=== PATIENT | male | born 1985 | race Caucasian/White ===

== ENCOUNTER 2019-05-18 08:30 | Inpatient (IN) | payer OTHER ==
[2019-05-18 09:05] VITALS: BMI 20.9
--- NOTE | 2019-05-18 11:02 | HP ---
COWS - Scale Resting Pulse: 0= [place] 80 or Below Sweatin= Chills/Flushing Restless Observation: 1= Difficult to Sit Still Pupil Size: 1= Pupils >than Normal Bone or Joint Aches: 4=Acute Joint/Muscle Pain Runny Nose/ Eye Tearin= Nasal Congestion GI Upset > 30mins: 2= Nausea/Diarrhea Tremor Observation: 2= Slight Tremor Visible Yawning Observation: 2= >3x During Session Anxiety or Irritability: 2=Irritable/Anxious Goose Flesh Skin: 3=Piloerection COWS Score: 19 CIWA Score Nausea/Vomitin Muscle Tremors: 3 Anxiety: 2 Agitation: 2 Paroxysmal Sweats: 2 Orientation: 0-Oriented Tacttile Disturbances: 1-Very Mild Itch/Numbness Auditory Disturbances: 1-Very Mild Visual Disturbances: 1-Very Mild Sensitivity Headache: 2-Mild CIWA-Ar Total Score: 17 - Admission Criteria OASAS Guidelines: Admission for Medically Managed Detox: Requires at least one of the followin. CIWA greater than 12 2. Seizures within the past 24 hours 3. Delirium tremens within the past 24 hours 4. Hallucinations within the past 24 hours 5. Acute intervention needed for co occurring medical disorder 6. Acute intervention needed for co occurring psychiatric disorder 7. Severe withdrawal that cannot be handled at a lower level of care (continued vomiting, continued diarrhea, abnormal vital signs) requiring intravenous medication and/or fluids 8. Patient presents the following: CIWA greater than 12 Admission Criteria Met: Admission criteria met Admission ROS [facility] - [facility] Chief Complaint: I want to detox Allergies/Adverse Reactions: Allergies Allergy/AdvReac Type Severity Reaction Status Date / Time No Known Allergies Allergy Verified 05/18/19 09:02 History of Present Illness: 34 year old man presents for detox. Patient was brought by van from [facility] where he presented last night with acute back pain, ( pain level during assessment 11/16). He had MRI cord compression screening without contrast , results not attached to discharge summary. Patient however reports he was told everything is okay. Patient unable to sit during assessment. Exam Limitations: No Limitations - Ebola screening Have you traveled outside of the country in the last 21 days: No Have you had contact with anyone from an Ebola affected area: No Have you been sick,other than usual withdrawal symptoms: No Do you have a fever: No - Review of Systems Constitutional: Chills, Loss of Appetite EENT: reports: Nose Congestion Respiratory: reports: No Symptoms reported Cardiac: reports: No Symptoms Reported GI: reports: Diarrhea, Nausea, Poor Fluid Intake, Vomiting, Abdominal cramping : reports: No Symptoms Reported Musculoskeletal: reports: Back Pain, Joint Pain, Muscle Pain Integumentary: reports: Dryness Neuro: reports: Headache, Tremors Endocrine: reports: No Symptoms Reported Hematology: reports: No Symptoms Reported Psychiatric: reports: No Sypmtoms Reported Other Systems: Reviewed and Negative Patient History - Patient Medical History Hx Anemia: No Hx Asthma: Yes Hx Chronic Obstructive Pulmonary Disease (COPD): No Hx Cancer: No Hx Cardiac Disorders: No Hx Congestive Heart Failure: No Hx Hypertension: No Hx Hypercholesterolemia: No Hx Pacemaker: No HX Cerebrovascular Accident: No Hx Seizures: No Hx Dementia: No Hx Diabetes: No Hx Gastrointestinal Disorders: No Hx Liver Disease: No Hx Genitourinary Disorders: No Hx Sexually Transmitted Disorders: No Hx Renal Disease (ESRD): No Hx Thyroid Disease: No Hx Human Immunodeficiency Virus (HIV): No Hx Hepatitis C: No Hx Depression: No Hx Suicide Attempt: No Hx Bipolar Disorder: No Hx Schizophrenia: No - Patient Surgical History Past Surgical History: No - PPD History Previous Implant?: No Implanted On Prior [facility] Admission?: No PPD to be Administered?: Yes - Smoking Cessation Smoking history: Current every day smoker Have you smoked in the past 12 months: Yes Aproximately how many cigarettes per day: 20 Hx Chewing Tobacco Use: No Initiated information on smoking cessation: Yes 'Breaking Loose' booklet given: 05/18/19 Admission Physical Exam S - Vital Signs Vital Signs: Vital Signs - 24 hr 05/18/19 09:02 Temperature 97.5 F L Pulse Rate 78 Respiratory 18 Rate Blood Pressure 138/87 - Physical General Appearance: Yes: Mild Distress (from back pain), Irritable, Sweating, Anxious HEENTM: Yes: Hearing grossly Normal, Normocephalic, Normal Voice, Nasal Congestion Respiratory: Yes: Chest Non-Tender, Lungs Clear, Normal Breath Sounds, No Respiratory Distress, No Accessory Muscle Use Neck: Yes: No masses,lesions,Nodules, Supple Breast: Yes: Breast Exam Deferred Cardiology: Yes: Regular Rhythm, Regular Rate, S1, S2 Abdominal: Yes: Normal Bowel Sounds, Non Tender Genitourinary: Yes: Within Normal Limits Back: Yes: Normal Inspection Musculoskeletal: Yes: Back pain, Muscle Pain Extremities: Yes: Tremors Neurological: Yes: deputy general counsel II-XII NML intact, Fully Oriented, Alert, Normal Mood/ Affect, Normal Response Integumentary: Yes: Track Clancy, Other (sweat, scattered lesions) Lymphatic: Yes: Within Normal Limits - Diagnostic (1) Alcohol dependence, uncomplicated Current Visit: Yes Status: Acute (2) Acute back pain Current Visit: Yes Status: Acute Qualifiers: Back pain location: low back pain Back pain laterality: bilateral Sciatica presence: without sciatica Qualified Code(s): M54.5 - Low back pain (3) Opiate addiction Current Visit: Yes Status: Acute Qualifiers: Substance use status: uncomplicated Qualified Code(s): F11.20 - Opioid dependence, uncomplicated (4) Cocaine abuse Current Visit: Yes Status: Acute (5) Nicotine addiction Current Visit: Yes Status: Acute Qualifiers: Nicotine product type: cigarettes Substance use status: uncomplicated Qualified Code(s): F17.210 - Nicotine dependence, cigarettes, uncomplicated Cleared for Admission [facility] - Detox or Rehab [facility] Level of Care: Medically Managed Detox Regimen/Protocol: Methadone/Librium Claeared for Rehab Admission: No Breathalyzer - Breathalyzer Breathalyzer: 0 Urine Drug Screen - Test Device Lot number: [id number] Expiration date: 10/31/20 - Control Is test valid?: Yes - Results Drug screen NEGATIVE: No Urine drug screen results: NIKOS-Cocaine, FEN-Fentanyl, MOP-Opiates Inpatient Rehab Admission - Rehab Decision to Admit Inpatient rehab admission?: No
[2019-05-18] MEDS ORDERED: ACETAMINOPHEN 325 MG TABLET (FP) PO PRN ×2 (11:13)
[2019-05-18] MEDS ORDERED: METHADONE HCL 10 MG TABLET (FOR DETOX USE ONLY) PO ONE (11:13)
[2019-05-18] MEDS ORDERED: MAG HYDROX/AL HYDROX/SIMETH 30 ML UNIT-DOSE CUP PO PRN (11:13)
[2019-05-18] MEDS ORDERED: NICOTINE POLACRILEX 2 MG GUM BUC PRN (11:13)
[2019-05-18] MEDS ORDERED: MAGNESIUM HYDROX 2400MG/30ML ORAL SUSPENSION 30 ML CUP PO PRN (11:13)
[2019-05-18] MEDS ORDERED: cloNIDine HCL 0.1 MG TABLET PO PRN (11:13)
[2019-05-18] MEDS ORDERED: NALOXONE HCL 0.4 MG/ML VIAL IM PRN (11:13)
[2019-05-18] MEDS ORDERED: chlordiazePOXIDE HCL 10 MG CAPSULE PO PRN (11:13)
[2019-05-18] MEDS ORDERED: MENTHOL/PHENOL 1 EACH UD MM PRN (11:13)
[2019-05-18] MEDS ORDERED: MAGNESIUM CITRATE 300 ML BOTTLE PO PRN (11:13)
[2019-05-18] MEDS: METHOCARBAMOL 500 MG TABLET PO PRN (13:40)
[2019-05-18] MEDS: chlordiazePOXIDE HCL 25 MG CAPSULE PO SCH ×2 (13:40→22:22)
[2019-05-18] MEDS: NICOTINE 14 MG/24 HOURS TOPICAL PATCH TD SCH (13:44)
--- NOTE | 2019-05-18 14:21 | EKG ---
Test Reason : Blood Pressure : / mmHG Vent. Rate : 073 BPM Atrial Rate : 073 BPM P-R Int : 148 ms QRS Dur : 098 ms QT Int : 382 ms P-R-T Axes : 040 051 052 degrees QTc Int : 420 ms NORMAL SINUS RHYTHM NORMAL ECG Confirmed by MD VASQUEZ GREGORY ([id number]) on 05/18/2019 2:20:42 PM Referred By: Confirmed By:ALVARO VASQUEZ MD
[2019-05-18] MEDS: THIAMINE HCL 100 MG TABLET (FP) PO SCH (22:21)
[2019-05-19] MEDS: chlordiazePOXIDE HCL 25 MG CAPSULE PO SCH ×3 (06:10→22:13)
--- NOTE | 2019-05-19 09:35 | PN ---
[facility] CIWA - CIWA Score Nausea/Vomitin-No Nausea/No Vomiting Muscle Tremors: 3 Anxiety: 4-Mod. Anxious/Guarded Agitation: 2 Paroxysmal Sweats: 2 Orientation: 0-Oriented Tacttile Disturbances: 0-None Auditory Disturbances: 0-None Visual Disturbances: 1-Very Mild Sensitivity Headache: 3-Moderate (back pain) CIWA-Ar Total Score: 15 BHS COWS - Scale Resting Pulse: 0= [place] 80 or Below Sweatin= Chills/Flushing Restless Observation: 0= Sits Still Pupil Size: 1= Pupils >than Normal Bone or Joint Aches: 2= Severe Diffuse Aches (back pain) Runny Nose/ Eye Tearin= Nasal Congestion GI Upset > 30mins: 2= Nausea/Diarrhea Tremor Observation of Outstretched Hands: 2= Slight Tremor Visible Yawning Observation: 1= 1-2x During Session Anxiety or Irritability: 2=Irritable/Anxious Goose Flesh Skin: 3=Piloerection COWS Score: 15 S Progress Note (SOAP) Subjective: 34 years old male admitted on 05/18/19 for alcohol and opiate withdrawal sx management treating with librium detox regiments feeling ok today ate breakfast tolerated food and fluid well reports severe back pain treated in the hospital for 2 days demands percocet for pain discuss risks of percocet patient accept motrin for pain "I want strongest medication for pain" reveal the possibility of pain management clinic upon discharge Objective: 05/19/19 09:35 Vital Signs Temperature 97.9 F 05/19/19 05:44 Pulse Rate 71 05/19/19 05:44 Respiratory Rate 18 05/19/19 05:44 Blood Pressure 113/71 05/19/19 05:44 O2 Sat by Pulse Oximetry (%) 05/19/19 09:35 lab pending Assessment: 05/19/19 09:35 alcohol and opiate withdrawal Plan: librium and methadone regiments
[2019-05-19] MEDS ORDERED: METHADONE HCL 5 MG TABLET (FOR DETOX USE ONLY) PO ONE (10:00)
[2019-05-19 10:09] LABS: ALBUMIN 3.3 g/dl (3.4-5.0); BILIRUBIN,TOTAL 0.4 mg/dL (0.2-1); BLOOD UREA NITROGEN 12.4 mg/dL (7-18); CALCIUM 9.3 mg/dL (8.5-10.1); CREATININE 0.9 mg/dL (0.55-1.3); POTASSIUM 4.1 mmol/L (3.5-5.1); TOT PROT 7.7 g/dl (6.4-8.2)
[2019-05-19 10:11] LABS: HEMATOCRIT 38.4 % (35.4-49); HEMOGLOBIN 12.6 GM/dL (11.7-16.9); MCH 25.9 pg (25.7-33.7); MCHC 32.8 g/dl (32.0-35.9); MEAN PLT VOLUME 8.1 fl (7.5-11.1); PLATELET COUNT 450 K/MM3 (134-434); RBC 4.86 M/mm3 (4.00-5.60); RDW 15.8 % (11.9-15.9); WHITE BLOOD COUNT 10.1 K/mm3 (4.0-10.0)
[2019-05-19] MEDS: NICOTINE 14 MG/24 HOURS TOPICAL PATCH TD SCH (10:22)
[2019-05-19] MEDS: PRENATAL VITAMINS W/ FOLIC ACID TABLET (FP) PO SCH (10:22)
[2019-05-19] MEDS: IBUPROFEN 400 MG TABLET (FP) PO PRN (15:00)
[2019-05-19] MEDS: BISMUTH SUBSALICYLATE 524 MG/30 ML UD PO PRN (17:54)
[2019-05-19] MEDS: THIAMINE HCL 100 MG TABLET (FP) PO SCH (22:13)
[2019-05-19] MEDS: MELATONIN 5 MG TABLETS PO PRN (22:14)
[2019-05-20] MEDS ORDERED: chlordiazePOXIDE 5 MG CAPSULE PO SCH (05:00)
[2019-05-20] MEDS ORDERED: METHADONE HCL 10 MG TABLET (FOR DETOX USE ONLY) PO ONE (10:00)
--- NOTE | 2019-05-20 10:20 | PN ---
[facility] CIWA - CIWA Score Nausea/Vomitin-No Nausea/No Vomiting Muscle Tremors: 3 Anxiety: 3 Agitation: 1-Slight > Activity Paroxysmal Sweats: 2 Orientation: 0-Oriented Tacttile Disturbances: 0-None Auditory Disturbances: 0-None Visual Disturbances: 1-Very Mild Sensitivity Headache: 1-Very Mild CIWA-Ar Total Score: 11 BHS COWS - Scale Resting Pulse: 0= [place] 80 or Below Sweatin= Chills/Flushing Restless Observation: 0= Sits Still Pupil Size: 1= Pupils >than Normal Bone or Joint Aches: 1= Mild Discomfort Runny Nose/ Eye Tearin= Nasal Congestion GI Upset > 30mins: 1= Stomach Cramp Tremor Observation of Outstretched Hands: 2= Slight Tremor Visible Yawning Observation: 2= >3x During Session Anxiety or Irritability: 2=Irritable/Anxious Goose Flesh Skin: 0=Smooth Skin COWS Score: 11 S Progress Note (SOAP) Subjective: 34 years old male admitted on 05/18/19 for alcohol and opiate withdrawal sx management treating with librium and methadone detox regiments received nurse requests that the patient prefers methadone prn due to standardized methadone "not enough" face to face with the patient discuss the requesting of methadone prn encourage medication assisted treatment program for opiate addiction Objective: 05/20/19 10:37 Vital Signs Temperature 97.4 F L 05/20/19 09:07 Pulse Rate 70 05/20/19 09:07 Respiratory Rate 18 05/20/19 09:07 Blood Pressure 104/64 05/20/19 09:07 O2 Sat by Pulse Oximetry (%) Laboratory Last Values WBC 10.1 K/mm3 (4.0-10.0) H 05/19/19 08:00 RBC 4.86 M/mm3 (4.00-5.60) 05/19/19 08:00 Hgb 12.6 GM/dL (11.7-16.9) 05/19/19 08:00 Hct 38.4 % (35.4-49) 05/19/19 08:00 MCV 79.0 fl (80-96) L 05/19/19 08:00 MCH 25.9 pg (25.7-33.7) 05/19/19 08:00 MCHC 32.8 g/dl (32.0-35.9) 05/19/19 08:00 RDW 15.8 % (11.9-15.9) 05/19/19 08:00 Plt Count 450 K/MM3 (134-434) H 05/19/19 08:00 MPV 8.1 fl (7.5-11.1) 05/19/19 08:00 Sodium 139 mmol/L (136-145) 05/19/19 08:00 Potassium 4.1 mmol/L (3.5-5.1) 05/19/19 08:00 Chloride 108 mmol/L (98-107) H 05/19/19 08:00 Carbon Dioxide 24 mmol/L (21-32) 05/19/19 08:00 Anion Gap 7 MMOL/L (8-16) L 05/19/19 08:00 BUN 12.4 mg/dL (7-18) 05/19/19 08:00 Creatinine 0.9 mg/dL (0.55-1.3) 05/19/19 08:00 Est GFR (CKD-EPI)AfAm 129.61 05/19/19 08:00 Est GFR (CKD-EPI)NonAf 111.83 05/19/19 08:00 Random Glucose 105 mg/dL (74-106) 05/19/19 08:00 Calcium 9.3 mg/dL (8.5-10.1) 05/19/19 08:00 Total Bilirubin 0.4 mg/dL (0.2-1) 05/19/19 08:00 AST 13 U/L (15-37) L 05/19/19 08:00 ALT 26 U/L (13-61) 05/19/19 08:00 Alkaline Phosphatase 74 U/L (45-117) 05/19/19 08:00 Total Protein 7.7 g/dl (6.4-8.2) 05/19/19 08:00 Albumin 3.3 g/dl (3.4-5.0) L 05/19/19 08:00 RPR Titer Nonreactive (NONREACTIVE) 05/19/19 08:00 HIV 1&2 Ag/Ab, 4th Gen Non reactive (Non Reactive) 05/19/19 10:00 HIV 1&2 Antibody Screen Cancelled 05/19/19 08:00 HIV P24 Antigen Cancelled 05/19/19 08:00 lab noted Assessment: 05/20/19 10:37 alcohol and opiate withdrawal Plan: librium and methadone regiments
[2019-05-20] MEDS: PRENATAL VITAMINS W/ FOLIC ACID TABLET (FP) PO SCH (10:46)
[2019-05-20] MEDS: NICOTINE 14 MG/24 HOURS TOPICAL PATCH TD SCH (10:47)
[2019-05-20] MEDS ORDERED: ONDANSETRON *ODT* 4 MG TABLET SL ONE (10:49)
[2019-05-20] MEDS ORDERED: LOPERAMIDE HCL 2 MG CAPSULE PO ONE (10:49)
[2019-05-20] MEDS: IBUPROFEN 400 MG TABLET (FP) PO PRN (10:52)
[2019-05-20] MEDS: diazePAM 5 MG TABLET PO PRN ×2 (11:36→17:51)
[2019-05-20] MEDS: diazePAM 5 MG TABLET PO SCH ×2 (13:29→22:21)
[2019-05-20] MEDS: METHOCARBAMOL 500 MG TABLET PO PRN (17:51)
[2019-05-20] MEDS: BISMUTH SUBSALICYLATE 524 MG/30 ML UD PO PRN (19:41)
[2019-05-20] MEDS: THIAMINE HCL 100 MG TABLET (FP) PO SCH (22:21)
[2019-05-20] MEDS: MELATONIN 5 MG TABLETS PO PRN (22:22)
[2019-05-21] MEDS ORDERED: chlordiazePOXIDE HCL 10 MG CAPSULE PO PRN
[2019-05-21] MEDS ORDERED: chlordiazePOXIDE HCL 10 MG CAPSULE PO SCH (05:00)
[2019-05-21] MEDS ORDERED: diazePAM 5 MG TABLET PO SCH (05:00)
[2019-05-21] MEDS ORDERED: METHADONE HCL 5 MG TABLET (FOR DETOX USE ONLY) PO ONE (06:00)
[2019-05-21 09:16] VITALS: BP 100/60; PULSE 86; TEMP 97.1
[2019-05-21] MEDS: IBUPROFEN 400 MG TABLET (FP) PO PRN (10:29)
[2019-05-21] MEDS: NICOTINE 14 MG/24 HOURS TOPICAL PATCH TD SCH (10:30)
[2019-05-21] MEDS: PRENATAL VITAMINS W/ FOLIC ACID TABLET (FP) PO SCH (10:30)
[2019-05-21] MEDS: diazePAM 5 MG TABLET PO PRN (10:32)
--- NOTE | 2019-05-21 11:25 | PN ---
[facility] CIWA - CIWA Score Nausea/Vomitin-No Nausea/No Vomiting Muscle Tremors: 2 Anxiety: 1-Mildly Anxious Agitation: 0-Normal Activity Paroxysmal Sweats: 1-Minimal Palms Moist Orientation: 0-Oriented Tacttile Disturbances: 0-None Auditory Disturbances: 0-None Visual Disturbances: 1-Very Mild Sensitivity Headache: 1-Very Mild CIWA-Ar Total Score: 6 S COWS - Scale Resting Pulse: 1= [place] 81-100 Sweatin= No chills or Flushing Restless Observation: 0= Sits Still Pupil Size: 0= Normal to Room Light Bone or Joint Aches: 1= Mild Discomfort Runny Nose/ Eye Tearin= None GI Upset > 30mins: 0= None Tremor Observation of Outstretched Hands: 2= Slight Tremor Visible Yawning Observation: 0= None Anxiety or Irritability: 2=Irritable/Anxious Goose Flesh Skin: 0=Smooth Skin COWS Score: 6 S Progress Note (SOAP) Subjective: 34 years old male admited on 05/18/19 for alcohol and opiate withdrawal sx management treating with Valium and methadone detox regiments feeling better today discussing aftercare with staff patient states that his family from [place] will pick him up tomorrow to aftercare lemon picker a month supply of suboxone and back to [place] and return to suboxone program monthly the counselor and the engineering writer discuss suboxone program that intake assessment and participation of therapeutic groups are necessary as part of suboxone program Objective: 05/21/19 11:30 Vital Signs Temperature 97.1 F L 05/21/19 08:52 Pulse Rate 86 05/21/19 08:52 Respiratory Rate 16 05/21/19 08:52 Blood Pressure 100/60 05/21/19 08:52 O2 Sat by Pulse Oximetry (%) Laboratory Last Values WBC 10.1 K/mm3 (4.0-10.0) H 05/19/19 08:00 RBC 4.86 M/mm3 (4.00-5.60) 05/19/19 08:00 Hgb 12.6 GM/dL (11.7-16.9) 05/19/19 08:00 Hct 38.4 % (35.4-49) 05/19/19 08:00 MCV 79.0 fl (80-96) L 05/19/19 08:00 MCH 25.9 pg (25.7-33.7) 05/19/19 08:00 MCHC 32.8 g/dl (32.0-35.9) 05/19/19 08:00 RDW 15.8 % (11.9-15.9) 05/19/19 08:00 Plt Count 450 K/MM3 (134-434) H 05/19/19 08:00 MPV 8.1 fl (7.5-11.1) 05/19/19 08:00 Sodium 139 mmol/L (136-145) 05/19/19 08:00 Potassium 4.1 mmol/L (3.5-5.1) 05/19/19 08:00 Chloride 108 mmol/L (98-107) H 05/19/19 08:00 Carbon Dioxide 24 mmol/L (21-32) 05/19/19 08:00 Anion Gap 7 MMOL/L (8-16) L 05/19/19 08:00 BUN 12.4 mg/dL (7-18) 05/19/19 08:00 Creatinine 0.9 mg/dL (0.55-1.3) 05/19/19 08:00 Est GFR (CKD-EPI)AfAm 129.61 05/19/19 08:00 Est GFR (CKD-EPI)NonAf 111.83 05/19/19 08:00 Random Glucose 105 mg/dL (74-106) 05/19/19 08:00 Calcium 9.3 mg/dL (8.5-10.1) 05/19/19 08:00 Total Bilirubin 0.4 mg/dL (0.2-1) 05/19/19 08:00 AST 13 U/L (15-37) L 05/19/19 08:00 ALT 26 U/L (13-61) 05/19/19 08:00 Alkaline Phosphatase 74 U/L (45-117) 05/19/19 08:00 Total Protein 7.7 g/dl (6.4-8.2) 05/19/19 08:00 Albumin 3.3 g/dl (3.4-5.0) L 05/19/19 08:00 RPR Titer Nonreactive (NONREACTIVE) 05/19/19 08:00 HIV 1&2 Ag/Ab, 4th Gen Non reactive (Non Reactive) 05/19/19 10:00 HIV 1&2 Antibody Screen Cancelled 05/19/19 08:00 HIV P24 Antigen Cancelled 05/19/19 08:00 lab noted Assessment: 05/21/19 11:31 alcohol and opiate withdrawal Plan: valium and methadone regiments
--- NOTE | 2019-05-21 14:39 | DS ---
[facility] Detox Discharge Summary Admission Date: 05/18/19 Discharge Date: 05/21/19 - History Present History: Alcohol Dependence, Opioid Dependence Additional Comments: 34 years old male admitted on 05/18/19 for alcohol and opiate withdrawal sx management treated with valium and methadone detox regiments patient prefers to leave the detox one day earlier than estimated discharge day of 05/22/19 patient is alert oriented x 3 cardiac s1s2 regular rate rhythm respiratory clear lungs bilaterally on auscultation extremities full range of motion Pertinent Past History: time for discharge: 55 minutes patient had verbal altercation with one male peer security staffers were called and situation been deescalated patient prefers to leave the detox today instead of tomorrow - Physical Exam Results Vital Signs: Vital Signs Temperature 97.1 F L 05/21/19 08:52 Pulse Rate 86 05/21/19 08:52 Respiratory Rate 16 05/21/19 08:52 Blood Pressure 100/60 05/21/19 08:52 O2 Sat by Pulse Oximetry (%) Pertinent Admission Physical Exam Findings: alcohol and opiate withdrawal Laboratory Last Values WBC 10.1 K/mm3 (4.0-10.0) H 05/19/19 08:00 RBC 4.86 M/mm3 (4.00-5.60) 05/19/19 08:00 Hgb 12.6 GM/dL (11.7-16.9) 05/19/19 08:00 Hct 38.4 % (35.4-49) 05/19/19 08:00 MCV 79.0 fl (80-96) L 05/19/19 08:00 MCH 25.9 pg (25.7-33.7) 05/19/19 08:00 MCHC 32.8 g/dl (32.0-35.9) 05/19/19 08:00 RDW 15.8 % (11.9-15.9) 05/19/19 08:00 Plt Count 450 K/MM3 (134-434) H 05/19/19 08:00 MPV 8.1 fl (7.5-11.1) 05/19/19 08:00 Sodium 139 mmol/L (136-145) 05/19/19 08:00 Potassium 4.1 mmol/L (3.5-5.1) 05/19/19 08:00 Chloride 108 mmol/L (98-107) H 05/19/19 08:00 Carbon Dioxide 24 mmol/L (21-32) 05/19/19 08:00 Anion Gap 7 MMOL/L (8-16) L 05/19/19 08:00 BUN 12.4 mg/dL (7-18) 05/19/19 08:00 Creatinine 0.9 mg/dL (0.55-1.3) 05/19/19 08:00 Est GFR (CKD-EPI)AfAm 129.61 05/19/19 08:00 Est GFR (CKD-EPI)NonAf 111.83 05/19/19 08:00 Random Glucose 105 mg/dL (74-106) 05/19/19 08:00 Calcium 9.3 mg/dL (8.5-10.1) 05/19/19 08:00 Total Bilirubin 0.4 mg/dL (0.2-1) 05/19/19 08:00 AST 13 U/L (15-37) L 05/19/19 08:00 ALT 26 U/L (13-61) 05/19/19 08:00 Alkaline Phosphatase 74 U/L (45-117) 05/19/19 08:00 Total Protein 7.7 g/dl (6.4-8.2) 05/19/19 08:00 Albumin 3.3 g/dl (3.4-5.0) L 05/19/19 08:00 RPR Titer Nonreactive (NONREACTIVE) 05/19/19 08:00 HIV 1&2 Ag/Ab, 4th Gen Non reactive (Non Reactive) 05/19/19 10:00 HIV 1&2 Antibody Screen Cancelled 05/19/19 08:00 HIV P24 Antigen Cancelled 05/19/19 08:00 lab noted - Treatment Hospital Course: Detox Protocol Followed, Detoxed Safely, Responded well, Discharged Condition Good, Rehab Referral Accepted Patient has Accepted a Rehab Referral to: medication assisted treatment program - Medication Discharge Medications: Ambulatory Orders Naloxone HCl [Narcan] 4 mg NS ASDIR PRN #1 spray 05/20/19 - Diagnosis (1) Opioid dependence, uncomplicated Current Visit: Yes Status: Acute (2) Alcohol dependence, uncomplicated Current Visit: Yes Status: Acute (3) Nicotine addiction Current Visit: Yes Status: Acute Qualifiers: Nicotine product type: cigarettes Substance use status: in withdrawal Qualified Code(s): F17.213 - Nicotine dependence, cigarettes, with withdrawal - AMA Did Patient Leave Against Medical Advice: No CIWA Score - CIWA Score Nausea/Vomitin-No Nausea/No Vomiting Muscle Tremors: 1-None Visible, but [place] Anxiety: 1-Mildly Anxious Agitation: 0-Normal Activity Paroxysmal Sweats: No Perspiration Orientation: 0-Oriented Tacttile Disturbances: 0-None Auditory Disturbances: 0-None Visual Disturbances: 0-None Headache: 1-Very Mild CIWA-Ar Total Score: 3 COWS (PN) - Opiate Withdrawal Resting Pulse: 1= [place] 81-100 Sweatin= Chills/Flushing Restless Observation: 0= Sits Still Pupil Size: 0= Normal to Room Light Bone or Joint Aches: 1= Mild Discomfort Runny Nose/ Eye Tearin= None GI Upset > 30mins: 0= None Tremor Observation of Outstretched Hands: 1= Tremor [place], Not Seen Yawning Observation: 0= None Anxiety or Irritability: 1=Feels Anxious/Irritable Goose Flesh Skin: 0=Smooth Skin COWS Score: 5
[2019-05-22] MEDS ORDERED: chlordiazePOXIDE HCL 10 MG CAPSULE PO ONE (05:00)
[2019-05-22] MEDS ORDERED: METHADONE HCL 5 MG TABLET PO ONE (06:00)
[2019-05-22] MEDS ORDERED: diazePAM 5 MG TABLET PO ONE (10:50)
== END 2019-05-21 01:05 | disposition home or self-care (01) | DRG 773 ==
LOC: YASAS 08:30 → Y3N 11:35
PROVIDERS: ADMIT Allergy & Immunology; ATTEND Allergy & Immunology
PROC: HZ2ZZZZ Detoxification Services for Substance Abuse Treatment (ICD-10-PCS; principal; 2019-05-18)
DX: F11.23 Opioid dependence with withdrawal (principal); F10.230 Alcohol dependence with withdrawal, uncomplicated; F14.10 Cocaine abuse, uncomplicated; F17.213 Nicotine dependence, cigarettes, with withdrawal; M54.5 Low back pain
CPT/HCPCS: 36415; 80053; 85027; 86593; 87389; 93005; 93010; Q0162

== ENCOUNTER 2024-01-29 19:36 | Inpatient (IN) | payer OTHER ==
[2024-01-29 21:26] VITALS: BMI 25.1
[2024-01-29] MEDS ORDERED: LOPERAMIDE HCL 2 MG CAPSULE PO PRN (22:21)
[2024-01-29] MEDS ORDERED: NALOXONE (NARCAN) HCL 4 MG/0.1 ML SPRAY NS PRN (22:21)
[2024-01-29] MEDS ORDERED: POLYETHYLENE GLYCOL (HEALTHYLAX) 3350 17 GM PACKET PO PRN (22:21)
[2024-01-29] MEDS ORDERED: BENZONATATE 200 MG CAPSULE PO PRN (22:21)
[2024-01-29] MEDS ORDERED: guaiFENesin 600 MG TABLET.ER (FP) PO PRN (22:21)
[2024-01-29] MEDS ORDERED: IBUPROFEN 400 MG TABLET (FP) PO PRN (22:21)
[2024-01-29] MEDS ORDERED: BENZOCAINE/MENTHOL (CHLORASEPTIC ) LOZENGE MM PRN (22:21)
[2024-01-29] MEDS ORDERED: IBUPROFEN 600 MG TABLET (FP) PO PRN (22:21)
[2024-01-29] MEDS ORDERED: DICYCLOMINE HCL 10 MG CAPSULE PO PRN (22:21)
[2024-01-29] MEDS ORDERED: BISMUTH SUBSALICYLATE 524 MG/30 ML PO PRN (22:21)
[2024-01-29] MEDS ORDERED: MAG HYDROX/AL HYDROX/SIMETH 30 ML UNIT-DOSE CUP PO PRN (22:21)
[2024-01-29] MEDS ORDERED: ACETAMINOPHEN 325 MG TABLET (FP) PO PRN (22:21)
[2024-01-29] MEDS ORDERED: MAGNESIUM HYDROX 2400MG/30ML ORAL SUSPENSION 30 ML CUP PO PRN (22:21)
[2024-01-30] MEDS ORDERED: ONDANSETRON *ODT* 4 MG TABLET ONE (03:24)
[2024-01-30] MEDS ORDERED: hydrOXYzine PAMOATE 25 MG CAPSULE (FP) PO ONE (03:24)
[2024-01-30] MEDS: hydrOXYzine PAMOATE 25 MG CAPSULE (FP) PO PRN (03:27)
[2024-01-30] MEDS: ONDANSETRON *ODT* 4 MG TABLET SL PRN (03:27)
[2024-01-30] MEDS ORDERED: PRENATAL VITAMINS W/ FOLIC ACID TABLET (FP) PO ONE (09:47)
[2024-01-30] MEDS ORDERED: methaDONE HCL 10 MG TABLET (FOR DETOX USE ONLY) ONE (09:47)
[2024-01-30] MEDS: BACITRACIN 0.9 GM PACKET TP SCH (09:52)
[2024-01-30] MEDS: PRENATAL VITAMINS W/ FOLIC ACID TABLET (FP) PO SCH (09:52)
[2024-01-30] MEDS: methaDONE HCL 10 MG TABLET PO ONE (09:52)
[2024-01-30] MEDS ORDERED: cloNIDine HCL 0.1 MG TABLET ONE (09:57)
[2024-01-30] MEDS: cloNIDine HCL 0.1 MG TABLET PO SCH (09:58)
[2024-01-30] MEDS ORDERED: methaDONE HCL 10 MG TABLET PO PRN (11:03)
[2024-01-30 14:47] LABS: HEMATOCRIT 23.8 % (35.4-49); HEMOGLOBIN 7.5 GM/dL (11.7-16.9); MCH 22.6 pg (25.7-33.7); MCHC 31.6 g/dl (32.0-35.9); MEAN CELL VOLUME 71.5 fl (80-96); MEAN PLT VOLUME 7.2 fl (7.5-11.1); PLATELET COUNT 393 10^3/uL (134-434); RBC 3.33 M/mm3 (4.00-5.60); RDW 19.3 % (11.9-15.9); WHITE BLOOD COUNT 6.5 K/mm3 (4.0-10.0)
[2024-01-30 15:01] LABS: CHLORIDE 105 mmol/L (98-107); POTASSIUM 3.8 mmol/L (3.5-5.1); SODIUM 140 mmol/L (136-145)
[2024-01-30 15:15] LABS: ANION GAP 5 mmol/L (4-13); BLOOD UREA NITROGEN 11.6 mg/dL (7-18); CO2 30 mmol/L (21-32); GLUCOSE,RANDOM 131 mg/dL (74-106)
[2024-01-30 15:17] LABS: CALCIUM 8.1 mg/dL (8.5-10.1)
[2024-01-30 15:21] LABS: BILIRUBIN,TOTAL 0.2 mg/dL (0.2-1)
[2024-01-30 15:23] LABS: ALK PHOS 81 U/L (45-117); SGPT/ALT 22 U/L (13-61); TOT PROT 6.3 g/dl (6.4-8.2)
[2024-01-30 15:45] LABS: SGOT/AST 50 U/L (15-37)
[2024-01-30] MEDS: MELATONIN 5 MG TABLETS PO SCH (22:14)
[2024-01-30] MEDS: THIAMINE 100 MG TABLET PO SCH (22:14)
[2024-01-31] MEDS: BACITRACIN 0.9 GM PACKET TP SCH (09:43)
[2024-01-31] MEDS: methaDONE HCL 10 MG TABLET PO ONE (09:44)
[2024-01-31] MEDS: methaDONE 40 MG, methaDONE 10 MG PO ONE (09:45)
[2024-02-01] MEDS ORDERED: cloNIDine HCL 0.1 MG TABLET PO PRN
[2024-02-01] MEDS: methaDONE 40 MG, methaDONE 20 MG PO ONE (09:39)
[2024-02-01 12:00] LABS: HEMOGLOBIN 7.6 GM/dL (11.7-16.9); MCH 22.1 pg (25.7-33.7); MCHC 31.9 g/dl (32.0-35.9); MEAN CELL VOLUME 69.3 fl (80-96); MEAN PLT VOLUME 7.1 fl (7.5-11.1); PLATELET COUNT 402 10^3/uL (134-434); RBC 3.46 M/mm3 (4.00-5.60); RDW 18.9 % (11.9-15.9); WHITE BLOOD COUNT 5.9 K/mm3 (4.0-10.0)
[2024-02-01] MEDS: FERROUS SO4 325 MG TABLET (FP) PO SCH (17:37)
[2024-02-02] MEDS: methaDONE 40 MG, methaDONE 30 MG PO ONE (10:42)
[2024-02-02] MEDS: METHOCARBAMOL 500 MG TABLET PO PRN (22:06)
[2024-02-03] MEDS: methaDONE HCL 40 MG DISPERSABLE TABLET PO ONE (09:45)
[2024-02-04] MEDS: methaDONE 80 MG, methaDONE 10 MG PO ONE (09:10)
[2024-02-04] MEDS: NALOXONE (NYS OPIOID OVERDOSE PROGRAM) 4 MG/0.1 ML SPRAY NS PRN (09:16)
[2024-02-04] MEDS: BACITRACIN 0.9 GM PACKET TP SCH (22:09)
[2024-02-05] MEDS: methaDONE 80 MG, methaDONE 10 MG PO ONE (09:14)
[2024-02-05 13:23] VITALS: BP 120/77; PULSE 66; RESP 18; TEMP 97.8
== END 2024-02-05 14:51 | disposition other institution (70) | DRG 773 ==
LOC: YASAS 19:36 → Y6N 01-30 12:18
PROVIDERS: ADMIT Allergy & Immunology; ATTEND Surgery
PROC: HZ2ZZZZ Detoxification Services for Substance Abuse Treatment (ICD-10-PCS; principal; 2024-01-30)
DX: F11.23 Opioid dependence with withdrawal (principal); F14.20 Cocaine dependence, uncomplicated; F10.20 Alcohol dependence, uncomplicated; F17.210 Nicotine dependence, cigarettes, uncomplicated; D50.9 Iron deficiency anemia, unspecified; L98.499 Non-pressure chronic ulcer of skin of other sites with unspecified severity; Z86.19 Personal history of other infectious and parasitic diseases
CPT/HCPCS: 36415; 80053; 80305; 80307; 82607; 82746; 83540; 83550; 85027; 85045; 86780; 87811; 93005; 93010; Q0162

== ENCOUNTER 2024-02-05 15:17 | Inpatient (IN) | payer OTHER ==
[~2024-02-05 15:17] MED LIST: BENZOCAINE/MENTHOL (CHLORASEPTIC ) LOZENGE MM PRN; BENZONATATE 200 MG CAPSULE PO PRN; LOPERAMIDE HCL 2 MG CAPSULE PO PRN; MAG HYDROX/AL HYDROX/SIMETH 30 ML UNIT-DOSE CUP PO PRN; MAGNESIUM HYDROX 2400MG/30ML ORAL SUSPENSION 30 ML CUP PO PRN; NALOXONE (NARCAN) HCL 4 MG/0.1 ML SPRAY NS PRN; NICOTINE POLACRILEX 2 MG GUM BUC PRN; NICOTINE POLACRILEX 2 MG LOZENGE BC PRN; POLYETHYLENE GLYCOL (HEALTHYLAX) 3350 17 GM PACKET PO PRN; guaiFENesin 600 MG TABLET.ER (FP) PO PRN
[2024-02-05] MEDS: TUBERCULIN PPD 5 TU/0.1ML VIAL ID ONE (15:42)
[2024-02-05] MEDS: FERROUS SO4 325 MG TABLET (FP) PO SCH (17:05)
[2024-02-05] MEDS: THIAMINE 100 MG TABLET PO SCH (21:05)
[2024-02-05] MEDS: hydrOXYzine PAMOATE 25 MG CAPSULE (FP) PO PRN (21:05)
[2024-02-05] MEDS: MELATONIN 5 MG TABLETS PO SCH (21:06)
[2024-02-06] MEDS: methaDONE 80 MG, methaDONE 10 MG PO SCH (05:50)
[2024-02-06] MEDS ORDERED: methaDONE HCL 10 MG TABLET PO SCH (06:00)
[2024-02-06] MEDS: PRENATAL VITAMINS W/ FOLIC ACID TABLET (FP) PO SCH (09:20)
[2024-02-07] MEDS: BACLOFEN 10 MG TABLET (FP) PO SCH (14:46)
[2024-02-07] MEDS: BACITRACIN 0.9 GM PACKET TP SCH (14:47)
[2024-02-07] MEDS: VITAMINS A AND D TOPICAL OINTMENT TP SCH (17:31)
[2024-02-08] MEDS: QUEtiapine FUMARATE 50 MG TABLET PO SCH (21:14)
[2024-02-09] MEDS ORDERED: VITAMINS A AND D TOPICAL OINTMENT TP PRN (12:09)
[2024-02-11] MEDS: ACETAMINOPHEN 325 MG TABLET (FP) PO PRN (06:05)
[2024-02-11 16:44] LABS: HIV INTERPRETATION NEGATIVE (NEGATIVE)
[2024-02-11] MEDS: OFLOXACIN 0.3% OTIC SOLUTION 5 ML BOTTLE AS SCH (17:30)
[2024-02-11] MEDS: IBUPROFEN 600 MG TABLET (FP) PO PRN (20:36)
[2024-02-16] MEDS ORDERED: BENZOCAINE 20 % GEL TUBE MM PRN (10:19)
[2024-02-16] MEDS: AMOX TR/POT CLAV 500MG/125MG TABLETS (FP) PO SCH (10:32)
[2024-02-16] MEDS: CHLORHEXIDINE GLUCONATE 0.12% 15ML CUP MM SCH (11:36)
[2024-02-17] MEDS: IBUPROFEN 400 MG TABLET (FP) PO PRN (21:13)
[2024-02-18] MEDS: FERROUS SO4 325 MG TABLET (FP) PO SCH (12:22)
[2024-02-19] MEDS: CARBAMIDE PEROXIDE 6.5% OTIC 15 ML BOTTLE AU SCH (10:03)
[2024-02-26] MEDS: NALOXONE (NYS OPIOID OVERDOSE PROGRAM) 4 MG/0.1 ML SPRAY NS SCH (10:32)
[2024-02-27] MEDS ORDERED: NALOXONE (NYS OPIOID OVERDOSE PROGRAM) 4 MG/0.1 ML SPRAY NS PRN (10:07)
[2024-02-29 07:03] VITALS: BP 121/84; PULSE 60; RESP 18; TEMP 97.6
[2024-02-29] MEDS: NALOXONE (NYS OPIOID OVERDOSE PROGRAM) 4 MG/0.1 ML SPRAY NS PRN (10:49)
[2024-02-29] MEDS ORDERED: NALOXONE (NYS OPIOID OVERDOSE PROGRAM) 4 MG/0.1 ML SPRAY NS PRN (11:15)
== END 2024-02-29 11:08 | disposition home or self-care (01) | DRG 772 ==
LOC: YASAS 15:17 → Y3NR 15:19 → Y3W 02-06 09:58 → Y5N 02-06 10:24
PROVIDERS: ADMIT Psychiatry & Neurology Pain Medicine; ATTEND Psychiatry & Neurology Pain Medicine
PROC: HZ42ZZZ Group Counseling for Substance Abuse Treatment, Cognitive-Behavioral (ICD-10-PCS; principal; 2024-02-05)
DX: F11.20 Opioid dependence, uncomplicated (principal); F14.20 Cocaine dependence, uncomplicated; F13.20 Sedative, hypnotic or anxiolytic dependence, uncomplicated; F10.20 Alcohol dependence, uncomplicated; F17.210 Nicotine dependence, cigarettes, uncomplicated; F19.24 Other psychoactive substance dependence with psychoactive substance-induced mood disorder; J45.909 Unspecified asthma, uncomplicated; L98.499 Non-pressure chronic ulcer of skin of other sites with unspecified severity; M54.50 Low back pain, unspecified; G89.29 Other chronic pain
CPT/HCPCS: 36415; 80305; 82962; 87389; J0475